=== PATIENT | female | born 1950 | race Caucasian/White ===

== ENCOUNTER 2017-08-30 08:24 | Day surgery (SDC) | payer MEDICARE, BC ==
[2017-08-30] MEDS ORDERED: Midazolam 1 MG/ML 2 ML SDV ONE (08:41)
[2017-08-30] MEDS ORDERED: Propofol 200 MG/20 ML SDV ONE (08:41)
[2017-08-30] MEDS ORDERED: fentaNYL 100 MCG/2 ML SDV ONE (08:41)
[2017-08-30] MEDS ORDERED: Lactated Ringers 1,000 ML IV SCH (09:30)
--- NOTE | 2017-08-30 13:31 | OR ---
DATE OF PROCEDURE: 08/30/2017 PREOPERATIVE DIAGNOSIS: Colon cancer screening. POSTOPERATIVE DIAGNOSIS: Diverticulosis. PROCEDURE: Colonoscopy to the cecum. SURGEON: Yohan Denis M.D. ANESTHESIA: IV anesthesia with monitored anesthesia care. INDICATION: This 67-year-old white female is referred for a colonoscopy for colon cancer screening. She says her last colonoscopic exam was done in 2003. I counseled her for the procedure, including the risks and alternatives, and she gave her informed consent to proceed. DESCRIPTION OF PROCEDURE: The patient was placed in the left lateral decubitus position. IV anesthesia was administered by the Anesthesia Service. Time-out was held. A rectal exam was performed, which was unremarkable. The flexible video Olympus colonoscope was introduced through her anus, up her rectum, out her colon all the way to the cecum. En route, we saw both left and right-sided diverticula. There was no bleeding nor inflammation associated with any of them. Once the cecum was reached, the scope was slowly withdrawn, examining the mucosa throughout. No additional mucosal abnormalities were noted. No neoplastic lesions were seen. The scope was retroflexed in the rectum with the distal rectum appearing unremarkable. The scope was straightened and removed. She tolerated the procedure well. Yohan Denis MD /[id number]
== END 2017-08-30 11:50 | disposition home or self-care (01) ==
LOC: JP.SDS 08:24
PROVIDERS: ATTEND Surgery
DX: Z12.11 Encounter for screening for malignant neoplasm of colon (principal); K57.30 Diverticulosis of large intestine without perforation or abscess without bleeding; Z88.1 Allergy status to other antibiotic agents; Z88.5 Allergy status to narcotic agent; Z88.8 Allergy status to other drugs, medicaments and biological substances
CPT/HCPCS: G0121; J2250; J2704; J3010; J7120

== ENCOUNTER 2019-10-19 15:57 | Emergency (ER) | payer MEDICARE ==
--- NOTE | 2019-10-19 17:00 | EDM.PDOC ---
ED HPI GENERAL MEDICAL PROBLEM - General Chief Complaint: Genitourinary Problem Stated Complaint: UTI Time Seen by Provider: 10/19/19 15:59 Source of Information: Reports: Patient History Limitations: Reports: No Limitations - History of Present Illness INITIAL COMMENTS - FREE TEXT/NARRATIVE: 69 yo female presents to the ER with increasing dysuria and frequency over the last 12 hours. Most recent UTI 3 months ago. denies fever, chills, N/V/D - Related Data Allergies Allergy/AdvReac Type Severity Reaction Status Date / Time cefprozil Allergy Itching Verified 10/19/19 16:22 estrogens, conjugated Allergy Rash Verified 10/19/19 16:22 [From Premarin] morphine Allergy Nausea and Verified 10/19/19 16:22 Vomiting thiopental [From Pentothal] Allergy Nausea and Verified 10/19/19 16:22 Vomiting Home Meds: Home Meds Acetaminophen [Mapap] 1,000 mg PO Q4HR PRN 08/28/17 [History] Aspirin [Jose Chewable] 81 mg PO DAILY 08/28/17 [History] Cetirizine [ZyrTEC] 10 mg PO DAILY PRN 08/28/17 [History] Cholecalciferol (Vitamin D3) [Vitamin D3] 5,000 unit PO DAILY 08/28/17 [History] Docusate Sodium [Colace] 100 mg PO ASDIRECTED 08/28/17 [History] Fish Oil/[place]-3 Fatty Acids [Fish Oil 1,000 MG] 1 cap PO DAILY 08/28/17 [ History] Loratadine [Claritin] 10 mg PO DAILY 08/28/17 [History] Meclizine [Antivert] 25 mg PO Q4HR PRN 08/28/17 [History] Metoprolol Tartrate [Lopressor] 50 mg PO Q12HR 08/28/17 [History] Propylene Glycol/PEG 400/Pf [Systane 0.3-0.4% Eye Drops] 1 drop OP Q4HR PRN [History] Vitamin B Complex 1 tab PO DAILY 08/28/17 [History] estradioL [Estradiol] 1 mg PO ASDIRECTED 08/28/17 [History] Fluticasone Propionate [Flonase Allergy Relief] 1 spray NS DAILY 08/30/17 [ History] Biototin Hair Skin Nails 5,000 intnl unit PO DAILY 10/19/19 [History] Methylcellulose [Fiber] 500 mg PO 10/19/19 [History] atorvaSTATin [Lipitor] 80 mg PO ASDIRECTED 10/19/19 [History] Past Medical History HEENT History: Reports: Allergic Rhinitis, Cataract, Impaired Vision, Sinusitis Cardiovascular History: Reports: Arrhythmia, High Cholesterol, Hypertension Respiratory History: Reports: None Gastrointestinal History: Reports: Chronic Constipation Genitourinary History: Reports: UTI, 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: Reports: Endometriosis, Musculoskeletal History: Reports: Osteoarthritis Neurological History: Reports: Vertigo - Infectious Disease History Infectious Disease History: Reports: Chicken Pox, Measles, Mumps - Past Surgical History HEENT Surgical History: Reports: Cataract Surgery Cardiovascular Surgical History: Reports: None, Coronary Artery Stent GI Surgical History: Reports: Appendectomy, Colonoscopy Female Surgical History: Reports: Breast Biopsy, Cystoscopy, D&C, Hysterectomy, Salpingo-Oophorectomy Neurological Surgical History: Reports: None Musculoskeletal Surgical History: Reports: None Social & Family History - Tobacco Use Smoking Status *Q: Current Every Day Smoker Years of Tobacco use: 50 Packs/Tins Daily: 0.5 - Caffeine Use Caffeine Use: Reports: Coffee - Recreational Drug Use Recreational Drug Use: No ED ROS GENERAL - Review of Systems Review Of Systems: See Below Constitutional: Denies: Fever, Chills, Fatigue Respiratory: Denies: Shortness of Breath, Wheezing Cardiovascular: Denies: Chest Pain GI/Abdominal: Denies: Abdominal Pain ED EXAM, GI/ABD - Physical Exam Exam: See Below General Appearance: Alert, WD/WN, No Apparent Distress Respiratory/Chest: No Respiratory Distress, Lungs Clear, Normal Breath Sounds. No: Crackles, Rhonchi, Wheezing Cardiovascular: Regular Rate, Rhythm, No Murmur, No Rub GI/Abdominal Exam: Normal Bowel Sounds, Soft, Non-Tender Course - Vital Signs Last Recorded V/S: Last Vital Signs Temp 37.4 C 10/19/19 16:31 Pulse 75 10/19/19 16:31 Resp 16 10/19/19 16:31 BP 152/73 H 10/19/19 16:31 Pulse Ox 96 10/19/19 16:31 - Orders/Labs/Meds Orders: Active Orders 24 hr Category Date Time Status CULTURE URINE [RM] Stat Lab 06/06/20 16:46 Received Labs: Laboratory Tests 10/19/19 Range/Units 16:22 Urine Color [place] A (YELLOW) Urine Appearance Slightly cloudy A (CLEAR) Urine pH 7.0 (5.0-8.0) Ur Specific [place] 1.015 (1.008-1.030) Urine Protein Unable to report (NEGATIVE) mg/dL Urine Glucose (UA) Unable to report (NEGATIVE) mg/dL Urine Ketones Negative (NEGATIVE) mg/dL Urine Occult Blood Large H (NEGATIVE) Urine Nitrite Unable to report (NEGATIVE) Urine Bilirubin Negative (NEGATIVE) Urine Urobilinogen 0.2 (0.2-1.0) EU/dL Ur Leukocyte Esterase Large H (NEGATIVE) Urine RBC 20-30 H (0-5) Urine WBC 50-75 H (0-5) Ur Epithelial Cells Not seen Amorphous Sediment Not seen Urine Bacteria Many Urine Mucus Not seen - Re-Assessments/Exams Free Text/Narrative Re-Assessment/Exam: 10/19/19 16:59 UA indicative of UTI will initiate antibiotics and culture urine Departure - Departure Time of Disposition: 16:59 Disposition: Home, Self-Care 01 Condition: Good Clinical Impression: UTI, Urinary tract infectious disease - Discharge Information *PRESCRIPTION DRUG MONITORING PROGRAM REVIEWED*: Not Applicable *COPY OF PRESCRIPTION DRUG MONITORING REPORT IN PATIENT [place]: Not Applicable Instructions: Urinary Tract Infection, Adult, [id number] Referrals: Eduar Stevne MD [Primary Care Provider] - Forms: ED Department Discharge Additional Instructions: Bactrim DS 1 tablet twice daily fro 3 days increase fluid intake with goal of 1.5-2 liters per day Sepsis Event Note - Evaluation Sepsis Screening Result: No Definite Risk - Focused Exam Vital Signs: Vital Signs Temp Pulse Resp BP Pulse Ox 10/19/19 16:31 37.4 C 75 16 152/73 H 96 10/19/19 16:19 37.4 C 75 16 152/73 H 96 Date Exam was Performed: 10/19/19 Time Exam was Performed: 17:01 - My Orders Last 24 Hours: My Active Orders 10/19/19 16:46 CULTURE URINE [RM] Stat - Assessment/Plan Last 24 Hours: My Active Orders 10/19/19 16:46 CULTURE URINE [RM] Stat
== END 2019-10-19 17:10 | disposition home or self-care (01) ==
LOC: JP.ED 15:57
DX: N39.0 Urinary tract infection, site not specified (principal); I10 Essential (primary) hypertension; E78.00 Pure hypercholesterolemia, unspecified; M19.90 Unspecified osteoarthritis, unspecified site; F17.210 Nicotine dependence, cigarettes, uncomplicated; Z88.8 Allergy status to other drugs, medicaments and biological substances; Z88.5 Allergy status to narcotic agent; Z79.82 Long term (current) use of aspirin; Z79.899 Other long term (current) drug therapy
CPT/HCPCS: 81001; 87086; 87088; 87186; 99283